=== PATIENT | female | born 1995 | race Caucasian/White ===

== ENCOUNTER 2019-01-11 17:21 | Outpatient (CLI) | payer BC ==
[~2019-01-11] VITALS: Ht 157.5 cm; Wt 56.8 kg
[2019-01-11 17:36] VITALS: BP 114/57
== END 2019-01-11 19:58 | disposition home or self-care (01) ==
LOC: LDOP 17:21
PROVIDERS: ATTEND Obstetrics & Gynecology
DX: Z04.1 Encounter for examination and observation following transport accident (principal); O32.1XX0 Maternal care for breech presentation, not applicable or unspecified; Z3A.20 20 weeks gestation of pregnancy
CPT/HCPCS: 59025; 76815; 99201; G0463

== ENCOUNTER 2019-05-09 23:31 | Inpatient (IN) | payer BC ==
[~2019-05-09] VITALS: Ht 157.5 cm; Wt 61.8 kg
[2019-05-11 09:00] VITALS: BP 114/77
== END 2019-05-11 14:15 | disposition home or self-care (01) | DRG 807 ==
LOC: LDOP 23:31 → LDIP 05-10 00:18 → 2NW 05-10 10:51
PROVIDERS: ADMIT Obstetrics & Gynecology; ATTEND Obstetrics & Gynecology
PROC: 10E0XZZ Delivery of Products of Conception, External Approach (ICD-10-PCS; principal; 2019-05-10)
PROC: 10907ZC Drainage of Amniotic Fluid, Therapeutic from Products of Conception, Via Natural or Artificial Opening (ICD-10-PCS; 2019-05-10)
PROC: 0HQ9XZZ Repair Perineum Skin, External Approach (ICD-10-PCS; 2019-05-10)
DX: O69.81X0 Labor and delivery complicated by cord around neck, without compression, not applicable or unspecified (principal); Z37.0 Single live birth; Z91.013 Allergy to seafood; Z3A.37 37 weeks gestation of pregnancy; O70.0 First degree perineal laceration during delivery
CPT/HCPCS: 36415; 85025; 86850; 86900; 89060; G0378; J2405; J3010; J2590; J7120; Q0114